=== PATIENT | male | born 1955 | race Caucasian/White ===

== ENCOUNTER 2017-07-02 14:41 | Emergency (ER) | payer MEDICAID ==
[~2017-07-02] VITALS: Ht 167.6 cm; Wt 85.7 kg
[2017-07-02 15:16] VITALS: Ht 167.6 cm; Wt 85.7 kg
[2017-07-02 19:09] VITALS: BP 136/98
== END 2017-07-02 19:09 | disposition home or self-care (01) ==
LOC: ED 14:41
DX: R10.12 Left upper quadrant pain (principal); R11.2 Nausea with vomiting, unspecified; R19.7 Diarrhea, unspecified
CPT/HCPCS: J1885